=== PATIENT | male | born 1965 | race Caucasian/White ===

== ENCOUNTER 2019-01-19 14:47 | Outpatient (REF) | payer BC, SELFPAY ==
[2019-01-19 19:18] LABS: COMMENT (LAB VIEW ONLY) 91.13 mg/dL; Microalb ug/mg Crea 75.1 ug/mg Cr
== END 2019-01-19 15:07 ==
LOC: LBN 14:47
PROVIDERS: PCP Internal Medicine; Visit Provider Internal Medicine
DX: E11.9 Type 2 diabetes mellitus without complications (principal)
CPT/HCPCS: 82043; 82570

== ENCOUNTER 2019-07-08 10:42 | Outpatient (CLI) | payer BC, SELFPAY ==
[2019-07-08 12:06] LABS: BUN 14 mg/dL (7-18); CREATININE 1.04 mg/dL (0.70-1.30); Calcium 9.2 mg/dL (8.5-10.1); Calculated LDL 116 mg/dL; Chloride 103 mmol/L (98-107); Cholesterol 201 mg/dL (<200); Glucose 110 mg/dL (74-106); HDL Cholesterol 53 mg/dL (40-60); Potassium 4.5 mmol/L (3.5-5.1); Sodium 142 mmol/L (136-145); Triglyceride 160 mg/dL (<150)
== END 2019-07-08 11:02 ==
PROVIDERS: PCP Internal Medicine; Visit Provider Internal Medicine
DX: I10 Essential (primary) hypertension (principal)
CPT/HCPCS: 36415; 80048; 80061